=== PATIENT | male | born 1950 ===

== ENCOUNTER → 2018-10-01 | Day surgery (SDC) | payer OTHER | END | disposition home or self-care (01) | LOC: ADM 09-29 15:15 → AMB-ENDOS 06:50 | DX: D12.4 Benign neoplasm of descending colon (principal); D12.2 Benign neoplasm of ascending colon; Z12.11 Encounter for screening for malignant neoplasm of colon; Z12.12 Encounter for screening for malignant neoplasm of rectum; Z85.048 Personal history of other malignant neoplasm of rectum, rectosigmoid junction, and anus; Z08 Encounter for follow-up examination after completed treatment for malignant neoplasm ==